=== PATIENT | female | born 1970 | race Caucasian/White ===

== ENCOUNTER → 2018-02-26 15:55 | Outpatient (CLI) | payer OTHER, SELFPAY ==
--- NOTE | 2018-02-26 15:58 | DI.US.S_ITS ---
PROCEDURE: US PELVIC COMPLETE INDICATIONS: Left side Pelvic pain TECHNIQUE: Real-time scanning was performed of the pelvic organs, with image documentation. Additional endovaginal scanning was necessary due to incomplete visualization of the adnexal and endometrial structures by transabdominal scanning. COMPARISON: [facility], CT, CT ABD PELVIS W CON, 10/08/2016, 15:23. FINDINGS: Transabdominal scanning: Limited scanning through the kidneys shows no hydronephrosis. No pathologic free abdominal or pelvic fluid. Endovaginal scanning: Uterus: Prior hysterectomy. Ovaries: Right ovary is surgically absent. Left ovary not visualized. No adnexal masses seen. IMPRESSION: No source for left lower quadrant pain identified sonographically. If indicated CT could be performed for further assessment. Dictated by: Ihsan PINEDA Interpreted: Oni Torres MD on 02/26/2018 at 16:41 Approved by: Oni Torres M.D. on 02/26/2018 at 16:49
== END ==
PROVIDERS: PCP Specialist; Visit Provider Specialist
DX: R10.2 Pelvic and perineal pain (principal); R10.32 Left lower quadrant pain
CPT/HCPCS: 76830; 76856